=== PATIENT | female | born 1985 | race Caucasian/White ===

== ENCOUNTER 2018-08-07 18:04 | Emergency (ER) | payer BC ==
--- NOTE | 2018-08-07 19:20 | PDOC ---
Rapid Medical Evaluation Chief Complaint: Pain, Acute Time Seen by Provider: 08/07/18 19:19 Medical Evaluation: Allergies Allergy/AdvReac Type Severity Reaction Status Date / Time No Known Allergies Allergy Verified 09/10/14 20:19 08/07/18 19:19 32 year old female left calf pain since this morning. + Nuvaring. Pe: patient alert ox3. no edema, no calf tenderness. A: calf pain P: us patient to the ER for further management Discharge Disposition - Diagnosis Pain of left calf - Referrals - Patient Instructions - Post Discharge Activity
[2018-08-07 19:28] VITALS: BP 121/70; PULSE 73; TEMP 98.5; BMI 24.1
--- NOTE | 2018-08-07 20:32 | PDOC ---
Attending Attestation - HPI HPI: 08/07/18 21:51 The patient is a 32 year old female with no significant PMH who presents to the emergency department with left calf pain for 1 day. 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 She describes her left calf pain as a 4/10 in severity and as a dull discomfort. She was at work today when she felt her left calf pain while sitting still. The patient reports that she was concerned for DVT. she denies any recent travel , PE in the past, recent exercise or activity, smoking. She does endorse being on control (Nuvaring) and states that she has 2 children. The patient denies any other symptoms. She denies any fever chills, nausea vomiting, diarrhea, constipation or urinary symptoms. She denies any chest pain, shortness of breath , headache or dizziness. The patient denies any other complaints. Documentation prepared by Chela Fitzpatrick, acting as pediatrician/medical doctor for Ursula Lora MD. - Physicial Exam PE: 08/07/18 22:02 GENERAL: Awake, alert, and fully oriented, in no acute distress HEAD: No signs of trauma EYES: PERRLA, EOMI, sclera anicteric, conjunctiva clear ENT: Auricles normal inspection, hearing grossly normal, nares patent, oropharynx clear without exudates. Moist mucosa NECK: Normal ROM, supple, no lymphadenopathy, JVD, or masses LUNGS: Breath sounds equal, clear to auscultation bilaterally. No wheezes, and no crackles HEART: Regular rate and rhythm, normal S1 and S2, no murmurs, rubs or gallops ABDOMEN: Soft, nontender, normoactive bowel sounds. No guarding, no rebound. No masses EXTREMITIES: Normal range of motion, no edema. No clubbing or cyanosis. No cords, erythema, or tenderness NEUROLOGICAL: Cranial nerves II through XII grossly intact. Normal speech, normal gait SKIN: Warm, Dry, normal turgor, no rashes or lesions noted. <Chela Fitzpatrick - Last Filed: 08/07/18 22:02> - Resident Resident Name: Makenzie Mitchell - ED Attending Attestation I have performed the following: I have examined & evaluated the patient, The case was reviewed & discussed with the resident, I agree w/resident's findings & plan - Medical Decision Making 08/07/18 20:38 Exam normal; sono normal. No fam hx of DVT; Pt states that she has a single area of tenderness in the left gastrocnemius muscle. 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 Likely strain on her muscle from wearing the same pair of shoes. Pt will be treated with analgesics. She is stable for discharge home. <Ursula Lora - Last Filed: 08/09/18 06:00>
[2018-08-07] MEDS ORDERED: ACETAMINOPHEN 325 MG TABLET (FP) PO ONE (20:34)
--- NOTE | 2018-08-07 20:39 | PDOC ---
History of Present Illness - General Chief Complaint: Pain, Acute Stated Complaint: LEFT LEG PAIN Time Seen by Provider: 08/07/18 19:19 - History of Present Illness Initial Comments: 32-year-old female with no significant past medical history presenting with left calf pain. The pain started this morning the patient was sitting at the time. patient is a non-smoker. Denies recent travel, recent surgery, history of malignancy, previous PE/DVT, or hemoptysis. 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 No history of clotting disorders. Patient denies engaging in physical activity that would cause leg pain such as running or hiking. No fever, chills, shortness of breath , or chest pain. Past History - Past Medical History Allergies/Adverse Reactions: Allergies Allergy/AdvReac Type Severity Reaction Status Date / Time No Known Allergies Allergy Verified 08/07/18 19:23 Home Medications: Ambulatory Orders NK [No Known Home Medication] 08/07/18 COPD: No - Immunization History Immunization Up to Date: Yes - Suicide/Smoking/Psychosocial Hx Smoking History: Never smoked Have you smoked in the past 12 months: No Information on smoking cessation initiated: No Hx Alcohol Use: No Drug/Substance Use Hx: No Substance Use Type: None Review of Systems - Review of Systems Comments:: Constitutional: no fever, no chills HEENT: no throat pain, no dysphagia Cardiovascular: no chest pain, no palpitations Respiratory: no cough, no shortness of breath Gastrointestinal: no abdominal pain, no nausea, no vomiting Genitourinary: no dysuria, no frequency Musculoskeletal: +calf pain, no arthralgia Skin: no rash, no itching Neurologic: no headache, no dizziness *Physical Exam - Vital Signs Last Vital Signs Temp Pulse Resp BP Pulse Ox 98.5 F 73 18 121/70 100 08/07/18 19:21 08/07/18 19:21 08/07/18 19:21 08/07/18 19:21 08/07/18 19:21 - Physical Exam Comments: General: Awake, alert, and fully oriented, in no acute distress Head: No signs of trauma Eyes: EOMI, sclera anicteric ENT: Moist mucus membranes Neck: Normal ROM, supple Lungs: Lungs clear, Normal breath sounds Cardio: Regular rhythm, S1 and S2 present Abdomen: Soft, nontender. No guarding, no rebound, no masses Extremities: Normal range of motion, Distal pulses present; left calf tender to deep palpation SKIN: Warm, Dry, normal turgor Neurologic: Cranial nerves II through XII grossly intact. Normal speech Medical Decision Making - Medical Decision Making 32-year-old female with no significant past medical history presenting with left calf pain. -DDX includes but not limited to DVT, muscle strain, compartment syndrome, cellulitis, peripheral vascular disease, vasospasm, trauma, vasculitis -Low suspicion for PE as patient does not endorse SOB and is satting well on room air -Ultrasound negative for DVT *DC/Admit/Observation/Transfer Diagnosis at time of Disposition: Pain of left calf - Discharge Dispostion Disposition: HOME Condition at time of disposition: Stable - Referrals Referrals: [facility] [Provider Group] - Patient Instructions Printed Discharge Instructions: DI for Leg Pain Additional Instructions: You came to the ED for left calf pain. Ultrasound study was negative for a blood clot. Follow-up with a primary care doctor in the next five to seven days to discuss this ED visit and to further evaluate your calf pain. You have been referred to the [facility]. Call and make an appointment at the number provided. You can take [id number] tylenol or motrin for pain. Follow the instructions on the medication bottle. Immediate medical attention is required if you have: increased pain, pain that is not controlled with [id number] medications, difficulty walking, weakness or numbness. If you think you are having an emergency, call for emergency medical services or present to the emergency department right away. - Post Discharge Activity
[2018-08-07] MEDS ORDERED: ACETAMINOPHEN 325 MG TABLET (FP) ONE (20:42)
== END 2018-08-07 21:23 | disposition home or self-care (01) ==
LOC: JER 18:04
DX: M79.18 Myalgia, other site (principal); M79.662 Pain in left lower leg; Z79.3 Long term (current) use of hormonal contraceptives
CPT/HCPCS: 93971-TC; 99282-25

== ENCOUNTER 2019-02-22 09:12 | Emergency (ER) | payer BC ==
[2019-02-22 09:17] VITALS: BP 119/79; TEMP 98.5; BMI 24.3
[2019-02-22] MEDS ORDERED: ALBUTEROL SO4 2.5/IPRATROPIUM 0.5 INH SOL 3 ML VIAL.NEB. NEB ONE ×2 (09:46→09:50)
[2019-02-22] MEDS ORDERED: IBUPROFEN 600 MG TABLET (FP) PO ONE ×2 (09:46→09:50)
[2019-02-22] MEDS ORDERED: DEXAMETHASONE 4 MG TABLET (FP) PO ONE (09:47)
[2019-02-22] MEDS ORDERED: DEXAMETHASONE SOD PHOSPHATE 10 MG/1 ML VIAL ONE (09:50)
--- NOTE | 2019-02-22 09:50 | PDOC ---
History of Present Illness - General Chief Complaint: Respiratory Stated Complaint: FEVER/COUGH Time Seen by Provider: 02/22/19 09:28 History Source: Patient Exam Limitations: No Limitations Past History - Travel Traveled outside of the country in the last 30 days: No Close contact w/someone who was outside of country & ill: No - Past Medical History Allergies/Adverse Reactions: Allergies Allergy/AdvReac Type Severity Reaction Status Date / Time No Known Allergies Allergy Verified 02/22/19 09:14 Home Medications: Ambulatory Orders Albuterol Sulfate Inhaler - [Ventolin HFA Inhaler -] 1 - 2 inh PO Q4H #1 inhaler 02/22/19 Azithromycin [Zithromax 250mg Tablets -] 250 mg PO UTDICT #6 tab 02/22/19 Ibuprofen [Motrin -] 600 mg PO TID 02/22/19 predniSONE [Deltasone -] 40 mg PO DAILY #8 tablet 02/22/19 COPD: No - Immunization History Immunization Up to Date: Yes - Suicide/Smoking/Psychosocial Hx Smoking History: Never smoked Have you smoked in the past 12 months: No Hx Alcohol Use: Yes (occasion) Drug/Substance Use Hx: No Substance Use Type: None Review of Systems - Review of Systems Able to Perform ROS?: Yes Comments:: 02/22/19 09:48 CONSTITUTIONAL: Present: fever Absent: chills, diaphoresis, generalized weakness, malaise, loss of appetite HEENT: Absent: rhinorrhea, nasal congestion, throat pain, throat swelling, difficulty swallowing, mouth swelling, ear pain, eye pain, visual Changes CARDIOVASCULAR: Absent: chest pain, loss of consciousness, palpitations, irregular heart rate, peripheral edema RESPIRATORY: Present: cough, short of breath Absent: dyspnea with exertion, orthopnea, wheezing, stridor, hemoptysis GASTROINTESTINAL: Absent: abdominal pain, abdominal distension, nausea, vomiting, diarrhea, constipation, melena, hematochezia SKIN: Absent: rash, itching, pallor NEUROLOGIC: Absent: headache, focal weakness or paresthesias, dizziness, unsteady gait, seizure, mental status changes, bladder or bowel incontinence PSYCHIATRIC: Absent: anxiety, depression, suicidal or homicidal ideation, hallucinations. Is the patient limited Latvian proficient: No *Physical Exam - Vital Signs Last Vital Signs Temp Pulse Resp BP Pulse Ox 98.5 F 119 H 18 119/79 98 02/22/19 09:16 02/22/19 09:16 02/22/19 09:16 02/22/19 09:16 02/22/19 09:16 - Physical Exam Comments: 02/22/19 09:49 GENERAL: Well developed, well nourished. Awake and alert. No acute distress. HEENT: Normocephalic, atraumatic. PERRLA, EOMI. No conjunctival pallor. Sclera are non- icteric. Moist mucous membranes. Oropharynx is clear. NECK: Supple. Full ROM. No JVD. Carotid pulses 2+ and symmetric, without bruits. No thyromegaly. No lymphadenopathy. CARDIOVASCULAR: Regular rate and rhythm. No murmurs, rubs, or gallops. Distal pulses are 2+ and symmetric. PULMONARY: No evidence of respiratory distress. Lungs with course sounds on the L. No wheezing, rales or rhonchi. SKIN: Warm and dry. Normal capillary refill. No rashes. No jaundice. NEUROLOGICAL: Alert, awake, appropriate. Cranial nerves 2-12 intact. No deficits to light touch and temperature in face, upper extremities and lower extremities. No motor deficits in the in face, upper extremities and lower extremities. Normoreflexic in the upper and lower extremities. Normal speech. Toes are down- going bilaterally. Gait is normal without ataxia. PSYCHIATRIC: Cooperative. Good eye contact. Appropriate mood and affect. Medical Decision Making - Medical Decision Making 02/22/19 09:49 the patient is a 33-year-old female with no past medical history who presents to the ER today for 4 days of fever, productive cough and shortness of breath. Patient states she was evaluated at an urgent care 2 days ago where she tested negative for , flu, RSV and pneumonia. She states that her symptoms have not improved over the past 2 days and she still feels short of breath. She states her fever this morning was 101.5 for which she took Motrin at around 6 AM. She presents for reevaluation. Denies sore throat, earache, chest pain, nausea, vomiting and diarrhea. A/P: Cough On exam patient with coarse lung sounds on the left side. Good inspiration. Throat is nonerythematous, ears clear bilaterally. We will reobtain new chest x-ray to rule out pneumonia. DuoNeb and steroids ordered Reevaluate 02/22/19 10:39 Patient feels better after the medication. Chest x-ray is negative for pneumonia. Since patient is still febrile after 4 days with cough and faculty breathing we will treat with a Z-Sanjeev for possible bronchitis We will discharge home with PCP follow-up. I discussed the physical exam findings, ancillary test results and final diagnoses with the patient. I answered all of the patient's questions. The patient was satisfied with the care received and felt comfortable with the discharge plan and treatment plan. The Patient agrees to follow up with the primary care physician/specialist within 24-72 hours. Return precautions were given. *DC/Admit/Observation/Transfer Diagnosis at time of Disposition: Bronchitis - Discharge Dispostion Disposition: HOME Condition at time of disposition: Stable Decision to Admit order: No - Referrals Referrals: Oliver Ward MD [Staff Physician] - - Patient Instructions Printed Discharge Instructions: DI for Acute Bronchitis Additional Instructions: You have bronchitis Please use the inhaler every 4 hours for the next week to help with your cough. Continue taking the prednisone daily for the next 4 days. Take the Z-pack as directed Please follow up with your primary care doctor in 1-2 days if your symptoms are not improving. Return to the emergency department if you have fevers, chills, worsening cough, chest pain, worsening shortness of breath or if you have any changes in your symptoms. - Post Discharge Activity Forms/Work/School Notes: Back to Work
[2019-02-22 10:46] VITALS: PULSE 86
== END 2019-02-22 10:46 | disposition home or self-care (01) ==
LOC: JERFT 09:12
PROC: 3E0F7GC Introduction of Other Therapeutic Substance into Respiratory Tract, Via Natural or Artificial Opening (ICD-10-PCS; principal; 2019-02-22)
DX: J40 Bronchitis, not specified as acute or chronic (principal)
CPT/HCPCS: 71046-TC-FY; 99281-25

== ENCOUNTER 2021-10-30 04:20 | Day surgery (SDC) | payer BC ==
[2021-10-26 11:29] VITALS: BMI 25.0
[2021-10-30] MEDS ORDERED: ONDANSETRON 4 MG/2 ML VIAL IVPUSH PRN (11:14)
[2021-10-30] MEDS ORDERED: IBUPROFEN 800 MG/8 ML IJ IVPB PRN (11:14)
[2021-10-30] MEDS ORDERED: oxyCODONE HCL 5 MG TABLET PO PRN (11:14)
[2021-10-30] MEDS ORDERED: IBUPROFEN 600 MG TABLET (FP) PO PRN (11:14)
[2021-10-30] MEDS ORDERED: ELECTROLYTE-148 SOLN 1,000 ML IV SCH (11:15)
[2021-10-30] MEDS ORDERED: PROPOFOL 20 ML ONE ×2 (11:23)
[2021-10-30] MEDS ORDERED: MIDAZOLAM HCL 2 MG/2 ML SINGLE DOSE VIAL ONE (11:23)
[2021-10-30] MEDS ORDERED: LIDOCAINE HCL/PF 2% SDV 5ML VIAL ONE (11:28)
[2021-10-30] MEDS ORDERED: ONDANSETRON 4 MG/2 ML VIAL ONE ×2 (11:41→11:45)
[2021-10-30] MEDS ORDERED: DEXAMETHASONE SOD PHOSPHATE 4 MG/1 ML VIAL ONE (11:45)
[2021-10-30] MEDS ORDERED: LACTATED RINGERS SOLUTION 1,000 ML IV SCH (12:15)
[2021-10-30] MEDS ORDERED: KETOROLAC TROMETHAMINE 30 MG/1 ML VIAL ONE (12:23)
[2021-10-30 17:05] VITALS: BP 109/66; PULSE 69; TEMP 97.7
== END 2021-10-30 15:55 | disposition home or self-care (01) ==
LOC: JASU-SURG 04:20
PROVIDERS: ATTEND Obstetrics & Gynecology
PROC: 0UDB7ZZ Extraction of Endometrium, Via Natural or Artificial Opening (ICD-10-PCS; 2021-10-30)
PROC: 0UB98ZX Excision of Uterus, Via Natural or Artificial Opening Endoscopic, Diagnostic (ICD-10-PCS; principal; 2021-10-30 11:00)
DX: N92.1 Excessive and frequent menstruation with irregular cycle (principal); N84.0 Polyp of corpus uteri
CPT/HCPCS: 81025; 88305-TC; 94760